=== PATIENT | female | born 1980 | race Caucasian/White ===

== ENCOUNTER → 2017-08-23 | Day surgery (SDC) | payer OTHER ==
[2017-08-23 07:38] LABS: HEMATOCRIT 38.7 % (37.0-47.0); HEMOGLOBIN 13.1 gm/dL (12.0-15.0); MCH 28.7 pg (26.0-34.0); MCHC 33.9 g/dL (28.0-37.0); MCV 84.7 fL (80.0-100.0); MPV 7.8 fl. (7.2-11.1); RBC 4.57 mil/uL (4.20-5.00); RDW-CV 13.2 % (10.5-14.5); WBC 4.8 thou/uL (4.0-11.0)
[2017-08-23 07:51] LABS: CALCIUM 8.6 mg/dL (8.5-10.1); CREATININE 0.7 mg/dL (0.6-1.3); POTASSIUM 3.9 mmol/L (3.5-5.1)
[2017-08-23 07:56] LABS: ALBUMIN 3.7 g/dL (3.4-5.0); TOTAL BILIRUBIN 0.4 mg/dL (<0.1-1.0); TOTAL PROTEIN 7.7 g/dL (6.4-8.2)
--- NOTE | 2017-09-06 16:07 | OP ---
[address] [address] OPERATIVE REPORT Name: ALEKSEY LOZOYA Room: [facility]#: [id number] Admission: 08/23/17 Attend Phys: Osito Lanza DO Discharge: Date of : 78 Report #: [id number] THIS REPORT FOR: //name// CC: Osito Chester Jr., DO DICTATED BY: Gisella Mejia DO DATE OF SERVICE: 08/23/2017 PREOPERATIVE DIAGNOSIS: Incarcerated umbilical hernia. POSTOPERATIVE DIAGNOSIS: Incarcerated umbilical hernia. SURGEON: Gisella Mejia DO, PGY5 SUPERVISING SURGEON: Osito Lanza DO [employer] ARCHITECT: CAMPOS Rodriguez, student. PROCEDURE: Umbilical hernia repair with mesh and excision of old scar. ANESTHESIA: General endotracheal. ESTIMATED BLOOD LOSS: 10 mL. SPECIMENS: None. COMPLICATIONS: None. DISPOSITION: PACU to home. OPERATIVE DETAILS: After obtaining proper informed consent, the patient was brought to the operating room and laid supine on the operating table. She was given preoperative antibiotics and sedated and intubated under the benefit of general anesthesia. Abdomen was then prepped and draped in the usual sterile fashion and timeout was performed. A horizontal supraumbilical incision was made with an elliptical excision of prior belly button ring scar. Once this was excised, subcutaneous tissue was dissected until we encountered the hernia sac. Hernia sac was then dissected free of surrounding tissue and the umbilicus was excised from the fascia. Once hernia sac was completely dissected free from the fascia ____ reduced into the abdomen. The hernia defect was approximately 1 cm. A 6.[address] mesh was then selected and placed in the preperitoneum with good lie. Fascia was closed over the top with bites inclusive of the anterior leaflet of the mesh using inverted 0 Prolene [place] [address] OPERATIVE REPORT Name: SHYAMKAYLIALEKSEY A Room: [facility]#: [id number] Admission: 08/23/17 Attend Phys: Osito Lanza DO Discharge: Date of : 78 Report #: [id number] infiltration of 0.5% Marcaine was injected in the fascia as well as surrounding subcutaneous tissue, totalling 20 mL. The umbilicus was reattached to the fascia with a 2-0 Vicryl and subcutaneous tissues reapproximated in layered fashion with 2-0 Vicryl and skin was closed with 4-0 Monocryl followed by Mastisol, Steri-Strips, and sterile Tegaderm dressing and gauze pressure dressing. All counts were correct at the end of the case, drapes removed and the patient was awoken, extubated, and brought to PACU in good condition for further recovery. Dr. Osito Lanza was present and scrubbed for the entire procedure. <ELECTRONICALLY SIGNED> By: Osito Lanza DO 09/06/17 1607 [id number] Lanza DO /bebo
== END | disposition home or self-care (01) ==
LOC: M.SUR 06:38
PROVIDERS: Surgery
DX: K42.0 Umbilical hernia with obstruction, without gangrene (principal); L90.5 Scar conditions and fibrosis of skin; Z88.8 Allergy status to other drugs, medicaments and biological substances; Z98.890 Other specified postprocedural states